=== PATIENT | female | born 1990 | race Caucasian/White ===

== ENCOUNTER 2022-03-06 18:33 | Emergency (ER) | payer BC, SELFPAY ==
[2022-03-06 18:50] VITALS: BP 129/77; PULSE 72; RESP 20; TEMP 36.7; O2SAT 100; BMI 27.6
--- NOTE | 2022-03-06 19:13 | EXP.UTC ---
Discharge Plan Disposition Patient Disposition: Home, Self-Care Condition: Good Prescriptions Prescriptions: New prednisone [prednisone] 20 mg tablet 20 mg PO BID 5 Days Qty: 10 0RF No Action escitalopram oxalate 10 mg tablet 10 mg PO DAILY Referrals Follow up/Referrals: Shama De La Vega [Primary Care Provider] - See instructions Activity Restrictions/Add. Instructions Additional Instructions/Restrictions: Look around and see what may have changed that you may be having a reaction too and change to something you have used before Over the counter Benadryl may help with itching Start oral steriods tomorrow Follow up with your Family Doctor if needed Rewash anything that may have been washed in the new detergent Straight to ER if any lfie threatening symptoms Clinical Impressions Clinical Impression: Urticaria Instructions Patient Instructions: ASHUTOSH Carrington for Hives Discharge ED Provider: Chaparrita Gomez [facility] General Stated complaint: rash Mode of Arrival: Ambulatory Source of Information: Patient Limitations: No Limitations Time Seen by Provider: 03/06/22 19:13 Description of Symptoms (Recalled from Triage Doc. by RN): PATIENT C/O RED, RAISED, ITCHY RASH ALL OVER SINCE YESTERDAY, UNKNOWN CAUSE HEENT Symptoms (Recalled from RN notes): No Resp Symptoms (Recalled from RN notes): No Skin Symptoms (Recalled from RN notes): Yes MS Symptoms (Recalled from RN notes): No Functional Status (Recalled from RN notes): WNL History of Present Illness Provider Complaint: Patient states that she broke out in rash all over her body yesterday and it has been itching and spreading State that they did recently get new laundry detergent not sure if it was a different scent or something but she has welps all over Related Data Home Medications Medication Instructions Recorded Confirmed escitalopram oxalate 10 mg tablet 10 mg PO DAILY Depression 03/06/22 03/06/22 Previous Rx's Medication Instructions Recorded prednisone 20 mg tablet 20 mg PO BID 5 days #10 tabs 03/06/22 Allergies Allergy/AdvReac Type Severity Reaction Status Date / Time No Known Allergies Allergy Verified 12/07/18 09:55 Worker's Comp Is this a Worker's Comp case?: No [facility] Disclaimer: The information contained in this section may have been updated after the patient was seen, as this information can be updated by other users. Medical History (Updated 03/06/22 @ 19:30 by Chaparrita Gomez APRN) Anxiety Asthma Depression Surgical History (Updated 03/06/22 @ 18:59 by Huong Martin, RN) History of tonsillectomy Social History (Updated 03/06/22 @ 18:59 by Huong Martin, RN) Smoking Status: Unknown if ever smoked alcohol intake: never current occupational status: other Travel in the last 8 weeks: None ROS Obtained: Yes All systems reviewed & no additional complaints except as documented and Yes Systems reviewed as appropriate & no additional complaints except as documented Constitutional Constitutional: Reports system reviewed and no additional complaints, except as documented and Reports as per HPI Eyes Eyes: Reports system reviewed and no additional complaints, except as documented and Reports as per HPI ENT Ears, Nose, Mouth, and Throat: Reports system reviewed and no additional complaints, except as documented and Reports as per HPI Respiratory Respiratory: Reports system reviewed and no additional complaints, except as documented, Reports as per HPI and Denies shortness of breath Gastrointestinal Gastrointestingal: Reports system reviewed and no additional complaints, except as documented and as per HPI Integumentary/Breasts Skin/Breast: Reports system reviewed and no additional complaints, except as documented, Reports as per HPI, Reports pruritus and Reports rash Physical Exam General General appearance: alert and in no apparent distress ENT ENT exam: Present mucous membranes moist Expanded E
[2022-03-06 19:24] LABS: UTC Pregnancy Test, Urine Negative (Negative)
[2022-03-06 19:32] VITALS: BP 129/77; PULSE 72; RESP 20; TEMP 36.7; O2SAT 100
== END 2022-03-06 19:55 | disposition home or self-care (01) ==
PROVIDERS: Emergency Provider Nurse Practitioner; PCP Nurse Practitioner Family
DX: L50.9 Urticaria, unspecified (principal)
CPT/HCPCS: 81025; 96372; 99212; G0463

== ENCOUNTER 2022-06-24 08:09 | Emergency (ER) | payer BC, SELFPAY ==
[2022-06-24 08:15] VITALS: BP 145/80; PULSE 80; RESP 20; TEMP 36.8; O2SAT 100; BMI 28.3
--- NOTE | 2022-06-24 08:29 | EXP.UTC ---
Discharge Plan Disposition Patient Disposition: Home, Self-Care Condition: Good Prescriptions Prescriptions: New ibuprofen [IBU] 800 mg tablet 800 mg PO Q8HP PRN (Reason: Moderate Pain) Qty: 30 0RF sulfamethoxazole-trimethoprim [Bactrim DS] 800-160 mg Tablet 1 tab PO BID Qty: 20 0RF No Action escitalopram oxalate 10 mg tablet 10 mg PO DAILY Referrals Follow up/Referrals: Shama De La Vega [Primary Care Provider] - See instructions Activity Restrictions/Add. Instructions Additional Instructions/Restrictions: Rest the extremity, Elevate the extremity as tolerated while you are resting. Take ibuprofen for pain. I sent in a prescription to your pharmacy. Take the antibiotics as directed. Follow up with your regular doctor in 48 hours for a recheck. GO TO THE ER FOR ANY WORSENING SYMPTOMS Clinical Impressions Clinical Impression: Cellulitis of leg, right Stand Alone Forms Stand Alone Forms: Work/School Release Instructions Patient Instructions: Cellulitis Discharge ED Provider: Manny Hauser [facility] General Stated complaint: knot on Rt leg, no accident Time Seen by Provider: 06/24/22 08:18 History of Present Illness Provider Complaint: She states that she has had right leg swelling and a warm knot on the side of her right lower leg for the past 4 hours. She denies any shortness of breath or chest pain. Related Data Home Medications Medication Instructions Recorded Confirmed escitalopram oxalate 10 mg tablet 10 mg PO DAILY Depression 06/24/22 06/24/22 Previous Rx's Medication Instructions Recorded ibuprofen 800 mg tablet (IBU) 800 mg PO Q8HP PRN Moderate Pain 06/24/22 #30 tabs sulfamethoxazole 800 1 tab PO BID #20 tabs 06/24/22 mg-trimethoprim 160 mg tablet (Bactrim DS) Allergies Allergy/AdvReac Type Severity Reaction Status Date / Time No Known Allergies Allergy Verified 06/24/22 08:31 [facility] Disclaimer: The information contained in this section may have been updated after the patient was seen, as this information can be updated by other users. Medical History Anxiety Asthma Depression Surgical History History of tonsillectomy Social History Smoking Status: Unknown if ever smoked alcohol intake: never current occupational status: other Travel in the last 8 weeks: None ROS Obtained: Yes All systems reviewed & no additional complaints except as documented Constitutional Constitutional: Denies chills and Denies fever(s) Eyes Eyes: Denies eye discharge ENT Ears, Nose, Mouth, and Throat: Denies dizziness, Denies otalgia and Denies sore throat Cardiovascular Cardiovascular: Denies chest pain Respiratory Respiratory: Denies shortness of breath, Denies chest congestion, Denies cough, Denies stridor and Denies wheezing Gastrointestinal Gastrointestingal: Denies nausea or vomiting Musculoskeletal Musculoskeletal: Reports system reviewed and no additional complaints, except as documented and Denies arthralgias Integumentary/Breasts Skin/Breast: Reports as per HPI Neurologic Neurologic: Denies dizziness and Denies paresthesias Allergic/Immunologic Allergic/Immunologic: Denies wheezing Physical Exam General General appearance: alert and in no apparent distress Head Head exam: atraumatic, normocephalic and normal inspection Eye Eye exam: Present normal appearance, PERRL and EOMI ENT ENT exam: Present normal exam, normal oropharynx, mucous membranes moist, TM's normal bilaterally and normal external ear exam Neck Neck exam: Present normal inspection, full ROM and trachea midline; Absent meningismus or lymphadenopathy Chest Chest inspection: Present normal inspection and symmetric chest wall rise; Absent tenderness Respiratory Respiratory exam: Present normal lung sounds bilater
--- NOTE | 2022-06-24 09:30 | PC.NURSE ---
Checked on pt no needs at this time
--- NOTE | 2022-06-24 09:33 | PC.NURSE ---
Pt went down for doppler
[2022-06-24 10:44] VITALS: BP 145/80; PULSE 80; RESP 20; TEMP 36.8; O2SAT 100
== END 2022-06-24 10:44 | disposition home or self-care (01) ==
PROVIDERS: Emergency Provider Nurse Practitioner Family; PCP Nurse Practitioner Family
DX: L03.115 Cellulitis of right lower limb (principal)
CPT/HCPCS: 93971; 99212; 99214; G0463

== ENCOUNTER 2024-08-22 02:34 | Emergency (ER) | payer BC, SELFPAY ==
[2024-08-22] VITALS (14 sets, daily range): BP systolic 126–147; BP diastolic 76–99; PULSE 122–143; RESP 16–26; TEMP 36.6–36.9; O2SAT 97–100; BMI 33.0
--- NOTE | 2024-08-22 02:30 | ECG_ITS ---
APPROVED REPORT Exam: Resting ECG HR:151 bpm ECG Measurements Heart Rate 151 AXES WY 112 P 29 QRSd 86 QRS 75 QT 324 T 49 QTc 410 Conclusion SINUS TACHYCARDIA WITH SHORT WY INTERVAL, POSSIBLE ATRIAL FLUTTER NONSPECIFIC ST & T-WAVE ABNORMALITY No STEMI Electronically signed by : TAB HOLMAN, 08/22/2024 03:51:09
[2024-08-22] MEDS: LACTATED RINGERS 1000ML 1,000 ML 999 ML IV ×2 (02:43→03:54)
[2024-08-22] MEDS: ONDANSETRON 4MG/2ML VIAL 4 MG IV (02:43)
--- NOTE | 2024-08-22 02:43 | XR_ITS ---
PROCEDURE INFORMATION: Exam: XR Chest Exam date and time: 08/22/2024 3:01 AM Age: 34 years old Clinical indication: Tachypnea; Additional info: Tachy, took delta 9 gummies TECHNIQUE: Imaging protocol: Radiologic exam of the chest. Views: 1 view. COMPARISON: No relevant prior studies available. FINDINGS: Lungs: Unremarkable. No consolidation. Pleural spaces: Unremarkable. No pleural effusion. No pneumothorax. Heart/Mediastinum: Unremarkable. No cardiomegaly. Bones/joints: Unremarkable. IMPRESSION: No acute findings.
--- OUTSIDE RECORDS SUMMARY | 2024-08-22 03:03 | XMS_ITS | Patient Health Record ---
Author Organization [facility] Address [address] [place] [address] Care Team Providers Care Business Management Associate Name Role Phone Vanna Dickinson Unavailable [phone] Estefani Pollock Unavailable [phone] Allergies No Known Allergies Results Component Value Reference Range Notes Pap w/HPV Reviewed date:11/15/2023 03:26:53 PM Interpretation:Pap normal, HPV negative Performing Lab:[facility], [facility] - [place] CLIA ID [id number], [address], [address], [place] [address], Director - Lacie Pandey MD Notes/Report: Any Nucleic Acid Amplification testing is performed on the [facility] [place]. Diagnosis: Negative for intraepithelial lesion or malignancy. AP results FINAL FIRMWARE MANAGER CYTOLOGY REPORT DIAGNOSIS: Negative for intraepithelial lesion or malignancy. Specimen Adequacy: Satisfactory for interpretation with endocervical/transformat ion zone component present. Pertinent Clinical History/History of Surgery: Not provided Collection Technique: Not provided Results of Last Pap: Not provided LMP: IUD Date of Last Pap: Not provided Specimen Source: Cervical/Endocervical Specimen Type: ThinPrep Other Gynecological Patient Information: Not provided Recommendation: Follow-up based on current clinical guidelines and/or clinical consideration. Screening note: This specimen has been analyzed by the ThinPrep Imaging System, an interactive computer system which assists the lab in screening of ThinPrep Pap Test slides. Following imaging, the slide was reviewed by a Residential Electrician and/or Pathologist. Negative Educational Note: The pap screening test aids in the detection of premalignant and malignant states of the cervix. False positive and negative results may occur. It is not a diagnostic test. If abnormal cells are reported, follow-up based on current clinical guidelines and/or clinical consideration is recommended. Mandy Cedeno Residential Electrician CPT Codes: 35465 ICD Codes: Z01.419 HPV High-Risk Negative Negative Reason For Referral No Information Medications Medication SIG (Take, Route, Frequency, Duration) Notes Start Date End Date Status Escitalopram Oxalate 10 MG Oral; Duration: 30 Days Active Mirena (52 MG) 20 MCG/DAY as directed Intrauterine Active Social History Sex Assigned At : Social History Observation Description Sex Assigned At Female Problems Problem Type SNOMED Code ICD Code Onset Dates Problem Status W/U Status Risk Notes Problem Cervical smear, as part of routine gynecological examination (Z01.419) 0 Active confirmed Annual without abnormal findings Vital Signs Blood pressure diastolic 80 mm Hg 11/08/2023 Height 70 in 11/08/2023 Blood pressure systolic 118 mm Hg 11/08/2023 Weight 223.4 lbs 11/08/2023 BMI 32.05 kg/m2 11/08/2023 Encounters Encounter Location Date Provider Diagnosis [facility] [address] [facility] [address] [place] [address] 11/06/2023 Estefani Pollock [facility] [address] [place] [address] 11/08/2023 Estefani Pollock [employer] exam without abnormal findings Z01.419 Assessments Encounter Date Diagnosis (ICD Code) Assessment Notes Treatment Notes Treatment Clinical Notes Section Notes 11/08/2023 [employer] exam without abnormal findings (ICD-10 - Z01.419) Normal annual exam Pap obtained BSE encouraged Follow up annual exam or PRN Plan Of Treatment No Information Insurance Providers Payer Name Payer Address Payer Phone Subscriber Number Group Number Insured Name Patient Relationship to Insured Coverage Start Date Coverage End Date Araseli HUBBARD [address] [place] [address] [id number] Rupinder Naqvi Self - patient is the insured Medical (General) History Medical History History ICD Code Asthma Anxiety Depression Obesity Surgical History Surgery Date(Month/Year) Tonsillectomy
--- OUTSIDE RECORDS SUMMARY | 2024-08-22 03:03 | XMS_ITS | Encounter Summary ---
Author Organization Healthcare Address [address] [place] [address] Care Team Providers Care Primer Waterproofing Machine Adjuster Name Role Phone Shama De La Vega HUMAN RESOURCES CLERK Primary Care Provider [phone] Reason for Visit * Reason Comments Med Refill Encounter Details Date Type Department Care Team (Late st Contact Info) Description 06/17/2023 Refill [facility] [address] [place] [address] Shama De La Vega APRN [address] [place] [address] Generalized anxiety disorder; Major depressive disorder, recurrent, moderate (CMS/HCC) Social History Tobacco Use Types Packs/Day Years Used Date Smoking Tobacco: Never Smokeless Tobacco: Never PHQ-2 Answer Date Recorded PHQ-2 Score 0 05/01/2022 PHQ-2A Answer Date Recorded PHQ-2 Score 0 05/01/2022 Comments Unknown Sex and Gender Information Value Date Recorded Sex Assigned at Female 02/14/2021 2:40 PM EST Legal Sex Female 9:03 AM EST Gender Identity Female 02/14/2021 2:40 PM EST Sexual Orientation Straight 02/14/2021 2: 40 PM EST documented as of this encounter Plan of Treatment Not on file documented as of this encounter Visit Diagnoses Diagnosis Generalized anxiety disorder Major depressive disorder, recurrent, moderate (CMS/HCC) Major depressive disorder, recurrent episode, moderate documented in this encounter Additional Health Concerns Assessment Noted Time PHQ-9 Depression Total Score: 12 021 10:51 AM EST A Body Mass Index follow-up plan has been documented for the patient 04/03/2022 3:24 PM EST documented as of this encounter Care Teams Primer Waterproofing Machine Adjuster Relationship Specialty Start Date End Date Shama De La Vega, HUMAN RESOURCES [place] [address] PCP - General Family Medicine 02/15/21 documented as of this encounter
--- OUTSIDE RECORDS SUMMARY | 2024-08-22 03:03 | XMS_ITS | Clinical Summary ---
Author Organization Healthcare Address [address] [place] [address] Care Team Providers Care Food Editor Name Role Phone Shama De La Vega MEIR Primary Care Provider [phone] Allergies No known active allergies Medications escitalopram (Lexapro) 10 MG tabletIndication s:Generalized anxiety disorder,Major depressive disorder, recurrent, moderate (CMS/HCC) Take 1 tablet (10 mg) by mouth 1 (one) time each day. 90 tablet 3 4 Active levonorgestrel (Kyleena) 19.5 MG intrauterine device IUD 1 each by Intrauterine route 1 (one) time. Active Active Problems Problem Noted Date Diagnosed Date Generalized anxiety disorder 04/03/2022 Major depressive disorder, recurrent, moderate 0 04/03/2022 Family History Medical History Relation Name Comments No Known Problems Brother Hypertension Father No Known Problems Maternal Grandfather Brain cancer Maternal Grandmother No Known Problems Mother Diabetes type II Paternal Grandmother Stroke Paternal Grandmother Relation Name Status Comments Brother Father Maternal Grandfather Maternal Grandmother Mother Paternal Grandmother Social History Tobacco Use Types Packs/Day Years Used Date Smoking Tobacco: Never Smokeless Tobacco: Never Tobacco Cessation:Counseling Given: Not Answered Humiliation, Afraid, Rape, and Kick questionnair e Answer Date Recorded Within the last year, have y ou been afraid of your partner or ex-partner? No 09/20/2023 Within the last year, have y ou been humiliated or emotionally abused in other ways by your partner or ex-partner? No Within the last year, have y ou been kicked, hit, slapped, or otherwise physically hurt by your partner or ex-partner? No 09/20/2023 Within the last year, have y ou been raped or forced to have any kind of sexual activity by your partner or ex-partner? No 09/20/2023 PHQ-2 Answer Date Recorded Patient Health Questionnaire-2 Score 0 09/25/2023 Hunger Vital Sign Answer Date Recorded Within the past 12 months, y ou worried that your food would run out before you got the money to buy more. Never true 09/20/19 24 Within the past 12 months, t he food you bought just didn't last and you didn't have money to get more. Never true 09/20/2023 PRAPARE - Transportation Answer Date Re corded In the past 12 months, has l ack of transportation kept you from medical appointments or from getting medications? No 07/2023 In the past 12 months, has l ack of transportation kept you from meetings, work, or from getting things needed for daily living? No 09/20/2023 Housing Stability Vital Sign Answer Valdez e Recorded In the last 12 months, was t here a time when you were not able to pay the mortgage or rent on time? No 09/20/2023 In the last 12 months, how many places have you lived? 1 09/20/2023 In the last 12 months, was t here a time when you did not have a steady place to sleep or slept in a jail (including now)? No 09/20/2023 Utilities Answer Date Recorded In the past 12 months has th e electric, gas, oil, or water company threatened to shut off services in your home? No 09/20/2023 PHQ-2A Answer Date Recorded PHQ-2 Score 0 05/01/2022 Comments Unknown Sex and Gender Information Value Date Recorded Sex Assigned at Female 02/14/2021 2:40 PM EST Legal Sex Female 9:03 AM EST Gender Identity Female 02/14/2021 2:40 PM EST Sexual Orientation Straight 02/14/2021 2: 40 PM EST Last Filed Vital Signs Vital Sign Reading Time Taken Comments Blood Pressure 112/72 09/25/2023 8:34 AM EDT Pulse 84 09/25/2023 8:34 AM EDT Temperature 36.4 C (97.6 F) 03/20/2021 3:18 PM EST Respiratory Rate 16 03/20/2021 3:18 PM EST Oxygen Saturation 99% 09/25/2023 8:34 AM EDT Inhaled Oxygen Concentration - - Weight 102 kg (224 lb) 09/25/2023 8:34 AM EDT Height 177.8 cm (5' 10 ) 09/25/2023 8:34 AM EDT Body Mass Index 32.14 09/25/2023 8:34 AM EDT Plan of Treatment Health Maintenance Due Date Last Done Comments [facility]-HIV Screening 1991 [facility]-Hepatitis C Screening 1991 [facility]-/Child/Adol SDOH Screenings 1991 [facility]-Varicella Vaccines (1 of 2 - 13+ 2-dose series) 08/17/2004 HPV Vaccines (1 - 3-dose series) 08/17/2006 [facility]-DTaP,Tdap,and Td Vaccines (1 - Tdap) 08/17/2010 [facility]-Hepatitis B Vaccines (1 of 3 - 19+ 3-dose series) 08/17/2010 [facility]-Pap Smear 08/17/2012 [facility]-Cervical Cancer Screening 08/17/2021 [facility]-HPV/Cotest 08/17/2021 [id number] Vaccine ( - season) 2023 [facility]- SDOH Screenings 03/22/2024 [facility]-Adult SDOH Screenings 03/22/2024 09/20/2023 [facility]-Depression Screening 09/24/2024 09/25/2023, 12/0 03/2020 [facility]-Influenza Vaccine (Season Ended) 2024 [facility]-Zoster Vaccines (1 of 2) 08/17/2041 [facility]-Obesity Intervention Completed 024, 09/25/2023, 09/25/2023, Additional history exists [facility]-HIB Vaccines Aged Out No longer e ligible based on patient's age to complete this topic [facility]-Hepatitis A Vaccines Aged Out No longer eligible based on patient's age to complete this topic [facility]-IPV Vaccines Aged Out No longer e ligible based on patient's age to complete this topic [facility]-Pneumococcal Vaccine: Pediatrics (0 to 5 Years) and At-Risk Patients (6 to 49 Years) Aged Out No longer eligible based on patient's age to complete this topic [facility]-Rotavirus Vaccines Aged Out No lo nger eligible based on patient's age to complete this topic Insurance [facility] [place] [address] ANTHEM Care Teams Food Editor Relationship Specialty Start Date End Date Shama De La Vega APRN [address] [place] [address] PCP - General Family Medicine 02/15/21
[2024-08-22 03:05] LABS: HCG Qualitative, Serum Negative (Negative)
[2024-08-22 03:08] LABS: Alanine Aminotransferase 19 U/L (12-78); Albumin Level 4.4 g/dl (3.5-5.0); Albumin/Globulin Ratio 1.5 (1.1-1.8); Alkaline Phosphatase 66 U/L (38-126); Anion Gap 9.4 mEq/L (5-15); Aspartate Amino Transferase 28 U/L (14-36); Bilirubin,Total 0.8 mg/dl (0.2-1.3); Blood Urea Nitrogen 21 mg/dl (7-17); Calcium 8.9 mg/dl (8.4-10.2); Carbon Dioxide 23 mmol/L (22.0-30.0); Chloride 106 mmol/L (98-107); Creatinine Clearance Estimated 146 mL/min (50-200); Estimated Glomerular Filt Rate 72 ml/min (>60); GFR (African American) 87 ML/MIN (>60); Globulin 2.9 g/dL (1.3-3.2); Glucose 139 mg/dl (74-100); Potassium 3.4 mmoL/L (3.5-5.1); Sodium 135 mmol/L (136-145); Total Protein,Serum 7.3 g/dl (6.3-8.2)
[2024-08-22 03:12] LABS: D-Dimer 0.38 ug/mL (0.0-0.5)
[2024-08-22 03:14] LABS: Basophils # 0.1 K/mm3 (0-0.2); Basophils % 0.8 % (0.1-2.0); Eosinophils # 0.5 Kmm3 (0.0-0.4); Eosinophils % 7.7 % (0.1-12.0); Hematocrit 43.7 % (37.0-47.0); Hemoglobin 14.3 g/dL (12.2-16.2); Immature Granulocytes # 0.01 10^3uL; Immature Granulocytes % 0.2 %; Lymphocytes # 3.4 K/mm3 (0.7-4.5); Lymphocytes % 51.2 % (10-50); Mean Corpuscular HGB Conc 32.7 g/dL (31.8-35.4); Mean Corpuscular Hemoglobin 29.9 pg (27.0-31.2); Mean Corpuscular Volume 91.2 fl (81-99); Monocytes # 0.5 K/mm3 (0.1-1.0); Monocytes % 7.7 % (1.7-9.3); Neutrophils # 2.1 K/mm3 (1.8-7.8); Neutrophils % 32.4 % (37.0-80.0); Nucleated Red Blood Cells # 0 10^3/uL; Nucleated Red Blood Cells % 0 %; Platelet Count 258 K/mm3 (142-424); Red Blood Count 4.79 M/mm3 (4.20-5.40); Red Cell Distribution Width 11.8 % (11.5-17.5); Red Cell Distribution Width-SD 39.6 fL; White Blood Count 6.6 K/mm3 (4.8-10.8)
--- NOTE | 2024-08-22 03:30 | HMH.EDGENADL ---
Discharge Plan Disposition Patient Disposition: Home, Self-Care Condition: Good Prescriptions Prescriptions: No Action escitalopram oxalate 10 mg tablet 10 mg PO DAILY ibuprofen [IBU] 800 mg tablet 800 mg PO Q8HP PRN (Reason: Moderate Pain) Qty: 30 0RF sulfamethoxazole-trimethoprim [Bactrim DS] 800-160 mg Tablet 1 tab PO BID Qty: 20 0RF Referrals Follow up/Referrals: Provider,Referral, MD [Primary Care Provider, Medical] - See instructions Activity Restrictions/Add. Instructions Additional Instructions/Restrictions: You were evaluated in the ER and are believed to be appropriate for discharge at this time. Drink plenty of water and get lots of rest when you get home. Avoid all illicit substances in the future to avoid circumstances like these. Make an appointment with your primary care doctor for reevaluation. Return to the ER with any new, worsening, or otherwise concerning symptoms as discussed including but not limited to chest pain, difficulty breathing, dizziness, or anything else worrying. Clinical Impressions Clinical Impression: Other psychoactive substance use, unspecified with intoxication, unspecified, Sinus tachycardia, Anxiety Print Language Print Language: Slovak Discharge ED Provider: Joceline Bentley General Adult HPI General Chief complaint: Overdose Stated complaint: Overdose Time Seen by Provider: 08/22/24 02:35 Mode of Arrival: EMS Source of Information: Patient and EMS Description of Symptoms (Recalled from ER Triage Doc. by RN): Pt presents to ED via EMS after taking Delta 9 gummies. Pt states she has no pain but feels weird and has cotton mouth. Pt is A&O*4 at this time. History of Present Illness HPI narrative: 34 year old female who reports no current medical conditions, no daily medications, no known drug allergies presents to the ER for complaints of cottonmouth after taking delta 9 Gummies purchased from a gas station. Patient ingested 1000 mg of delta 9 gummy which includes delta 9, THCA, THCB, and THCP. Patient denies any history of recreational drug use, occasional alcohol use is reported but none tonight. Patient denies taking any other medications or drugs tonight. Denies suicidal or homicidal ideation. Patient complains of extremely dry mouth and states her chest feels funny but otherwise does not have other complaints or concerns. She reports mild nausea, she is fully oriented. LMP a few years ago, patient reports the presence of IUD EMS reports no medications administered during transportation. Related Data Home Medications ?Medication ?Instructions ?Recorded ?Confirmed escitalopram oxalate 10 mg tablet 10 mg PO DAILY Depression 06/24/22 06/24/22 Previous Rx's ?Medication ?Instructions ?Recorded ibuprofen 800 mg tablet (IBU) 800 mg PO Q8HP PRN Moderate Pain 06/24/22 #30 tabs sulfamethoxazole 800 1 tab PO BID #20 tabs 06/24/22 mg-trimethoprim 160 mg tablet (Bactrim DS) Allergies Allergy/AdvReac Type Severity Reaction Status Date / Time No Known Allergies Allergy Verified 06/24/22 08:31 [facility] Disclaimer: The information contained in this section may have been updated after the patient was seen, as this information can be updated by other users. Medical History Anxiety Asthma Depression Surgical History History of tonsillectomy Social History Smoking Status: Unknown if ever smoked alcohol intake: never current occupational status: other Travel in the last 8 weeks?: None ROS Obtained: Yes Systems reviewed as appropriate & no additional complaints except as documented Per HPI Physical Exam General General appearance: alert, in no apparent distress and appears intoxicated Head Head exam: atraumatic and normocephalic Eye Eye exam: Present PERRL and EOMI ENT ENT exam: Present mucous membranes moist Neck Neck exam: Present normal inspection and full ROM Chest Chest inspection: Present symmetric chest wall rise Respiratory Respiratory exam: Present normal lung sounds bilaterally; Absent respiratory distress, wheezes or stridor Cardiovascular Cardiovascular exam: Present normal rhythm and tachycardia (Heart rate in the 140s on arrival) Abdominal Exam Abdominal exam: Present soft; Absent distention, tenderness, guarding or rebound Extremities Exam Extremities exam: Present full ROM; Absent tenderness, edema or joint swelling Neurological Exam Neurological exam: Present alert, oriented X3 and CN II-XII intact; Absent motor sensory deficit Psychiatric Psychiatric exam: Present normal affect and normal mood Skin Skin exam: Present warm and dry Medical Decision Making Medical Records Medical records reviewed: Yes I reviewed the patient's medical records. Screening: Per USPSTF and CDC recommendations, given the prevalence of disease in our region, it is our hospital?s policy to screen for HIV and viral Hepatitis for all patients aged 18 and over and those with ongoing risk factors. Chris Inquiry Pt receiving controlled substance: No Vital Signs: 08/22/24 02:29 08/22/24 02:36 08/22/24 02:45 Temperature 98.5 F Temperature Source Oral Pulse Rate 143 H 124 H Pulse Rate [Left] 136 H Respiratory Rate 19 26 H 16 Blood Pressure Blood Pressure [Right Arm] 147/93 H Blood Pressure Mean Blood Pressure Mean [Right Arm] 111 02 Sat by Pulse Oximetry 99 99 100 Oxygen Delivery Method Room Air 08/22/24 03:00 08/22/24 03:15 08/22/24 03:30 Temperature Temperature Source Pulse Rate 123 H 128 H Pulse Rate [Left] Respiratory Rate 18 22 Blood Pressure 147/99 H 142/81 H Blood Pressure [Right Arm] Blood Pressure Mean 107 100 Blood Pressure Mean [Right Arm] 02 Sat by Pulse Oximetry 100 99 Oxygen Delivery Method 08/22/24 04:00 08/22/24 04:30 08/22/24 05:00 Temperature Temperature Source Pulse Rate 122 H 125 H 134 H Pulse Rate [Left] Respiratory Rate 20 17 18 Blood Pressure 139/83 137/78 147/85 H Blood Pressure [Right Arm] Blood Pressure Mean 98 97 103 Blood Pressure Mean [Right Arm] 02 Sat by Pulse Oximetry 100 100 99 Oxygen Delivery Method 08/22/24 06:00 08/22/24 06:15 08/22/24 06:31 Temperature Temperature Source Pulse Rate 128 H 135 H 135 H Pulse Rate [Left] Respiratory Rate 17 20 19 Blood Pressure 128/76 146/83 H Blood Pressure [Right Arm] Blood Pressure Mean 91 93 Blood Pressure Mean [Right Arm] 02 Sat by Pulse Oximetry 97 98 99 Oxygen Delivery Method Lab Data Lab Results 08/22/24 02:40: WBC 6.6, RBC 4.79, Hgb 14.3, Hct 43.7, MCV 91.2, MCH 29.9, MCHC 32.7, RDW 11.8, Plt Count 258, MPV 10.0, Neut % (Auto) 32.4 L, Lymph % (Auto) 51.2 H, [place] % (Auto) 7.7, Eos % (Auto) 7.7, Baso % (Auto) 0.8, Neut # (Auto) 2.1, Lymph # (Auto) 3.4, [place] # (Auto) 0.5, Eos # (Auto) 0.5 H, Baso # (Auto) 0.1, D-Dimer 0.38, Sodium 135 L, Potassium 3.4 L, Chloride 106, Carbon Dioxide 23, Anion Gap 9.4, BUN 21 H, Creatinine 0.90, Estimated Creat Clear 146, Estimated GFR 72, Est GFR ( Amer) 87, Glucose 139 H, Calcium 8.9, Total Bilirubin 0.8, AST 28, ALT 19, Alkaline Phosphatase 66, Troponin I < 0.01, Total Protein 7.3, Albumin 4.4, Globulin 2.9, Albumin/Globulin Ratio 1.5, Serum HCG, Qual Negative, HCV Ab STEFANIA w/Rflx PCR Qn Negative, HIV Ag/Ab Combo Qual Negative 08/22/24 02:40 08/22/24 02:40 Orders (Tests/Meds): ED MEDICATIONS Discontinued Medications Generic Name Dose Route Start Last Admin Trade Name Freq PRN Reason Stop Dose Admin Hydroxyzine Pamoate 50 mg 08/22/24 04:59 08/22/24 05:03 Hydroxyzine Pamoate 25mg Capsule PO 08/22/24 05:00 50 mg ONCE ONE Administration Lactated Ringer's 1,000 mls @ 999 mls/hr 08/22/24 02:35 08/22/24 02:43 Lactated Ringer's 1000 Ml Bag IV 08/22/24 03:35 999 mls/hr .Q1H1M ONE Administration Lactated Ringer's 1,000 mls @ 999 mls/hr 08/22/24 03:41 08/22/24 03:54 Lactated Ringer's 1000 Ml Bag IV 08/22/24 04:41 999 mls/hr .Q1H1M ONE Administration Ondansetron HCl 4 mg 08/22/24 02:35 08/22/24 02:43 Ondansetron 4mg/2ml Vial IV 08/22/24 02:36 4 mg ONCE ONE Administration ORDERS Category Date Time Status CXR --portable [XR chest portable] Stat Exams 08/22/24 02:43 Completed CBC w/Auto Diff [Complete Blood Count Auto Diff] Stat Lab 08/22/24 02:40 Completed CMP [Comprehensive Metabolic Panel] Stat Lab 08/22/24 02:40 Completed D-Dimer Stat Lab 08/22/24 02:40 Completed HCG Qualitative, Serum Stat Lab 08/22/24 02:40 Completed HIV Combo Stat Lab 08/22/24 02:40 Completed Hepatitis C Ab Qual. W/ RFX Stat Lab 08/22/24 02:40 Completed Trop I [Troponin I] Stat Lab 08/22/24 02:40 Completed Troponin I Q3H Lab 08/22/24 06:02 Received ECG Request Stat Y 08/22/24 04:59 Ordered Medical Decision Narrative: In summary, this 34-year-old female presents to the emergency department today with dry mouth and funny feeling in the chest after delta 9 ingestion. On initial evaluation patient is tachycardic but otherwise hemodynamically stable, afebrile, GCS 15 though patient appears intoxicated, no neurologic deficits, patient denies chest pain and cardiopulmonary exam is benign aside from tachycardia, no peripheral edema, no evidence of traumatic injury, abdominal exam benign. Differential diagnosis includes but is not limited to delta 9 ingestion and side effects, I considered the possibility of coingestion however patient adamantly denies taking anything else and they provide the package for the Gummies upon arrival. With patient's tachycardia I considered the possibility of cardiac abnormality such as ACS or PE though I have very low suspicions for these and suspect tachycardia is related to intoxication. Based on these concerns, I ordered basic serum labs, cardiac workup, D-dimer, test. ECG personally interpreted demonstrates sinus tachycardia, rate 151, normal axis, normal OK and QTc, no STEMI. Patient received IV fluids and Zofran for treatment. Labs personally reviewed demonstrate trace hyponatremia and hypokalemia, nonactionable at this time, mild prerenal azotemia, patient is already receiving IV fluids. D-dimer normal at 0.38, PE excluded and CTA PE not indicated. No leukocytosis or anemia, normal platelets, initial troponin undetectably low less than 0.01 significantly reassuring since the patient has no chest pain and a nonischemic ECG. XR personally interpreted demonstrates no lobar infiltrate or other acute intrathoracic abnormality, see radiology read for final interpretation. Patient was placed in the ED observation at 0335 for continued cardiac monitoring and metabolization of intoxication. Goal is to preclude unnecessary admission and ensure patient returns to baseline. Patient remains on the ritual circumciser and has been frequently assessed while in ED observation. On reassessment patient has had improvement of her heart rate, now in the 120s, however she has already received 2 L of IV fluids and she is not yet down to a normal rate. Review of previous records demonstrates she has not had significant tachycardia before. She states she can feel her heart beating out of her chest but also states she feels extremely anxious. Repeat ECG was performed and personally interpreted demonstrating sinus tachycardia, rate 126, normal axis, normal OK and QTc, no STEMI. Due to significant anxiety patient received oral hydroxyzine. Hydroxyzine offer the patient a slight amount of relief, however her heart rate still remains elevated. Every time she thinks about having to call her mom to pick her up, her heart rate jumps at least 10-15 points. She expresses to me that she is still having anxiety but wants to go home. She is adamant that she is not having chest pain or difficulty breathing and thinks her heart rate is just high because she is anxious. There are also psychoactive components to the delta 9 which are likely contributing. I believe patient is likely appropriate for discharge. Repeat troponin is also undetectably low which offers further reassurance since patient has nonischemic ECG and no chest pain, shortness of breath, dizziness, or nausea. At this time I believe patient is appropriate for discharge. She is tolerating oral intake and has ambulated independently. She is a GCS 15 and clinically sober. She is appropriate for discharge at this time. Because she wanted to leave with elevated heart rate which I do believe is reasonable since I have excluded serious underlying cause and have correlated her elevated heart rate with increased stress such as having to call her mom, I gave her explicit instructions on continued symptomatic monitoring and management at home and extremely strict return precautions for the ER. I reiterated all instructions on symptomatic monitoring and management, follow-up, and return precautions. I advised the patient to avoid all illicit substances in the future. She indicated understanding. She is very reliable and reports she will absolutely come back to the ER if she has persistence of high heart rate or any new or worsening symptoms. She indicated understanding to all instructions and was discharged in stable condition. Total time in ED observation: 3 hours 40 minutes Critical Care Critical Care Time Critical Care Time: No
[2024-08-22 03:37] LABS: Troponin I < 0.01 ng/ml (0.00-0.034)
[2024-08-22 03:51] LABS: HIV Combo NEGATIVE (Negative)
[2024-08-22 03:59] LABS: Hepatitis C Ab Qual. W/ RFX NEGATIVE (Negative)
[2024-08-22] MEDS: hydrOXYzine pamoate 25MG CAPSULE 50 MG PO (05:03)
--- NOTE | 2024-08-22 05:20 | ECG_ITS ---
APPROVED REPORT Exam: Resting ECG HR:126 bpm ECG Measurements Heart Rate 126 AXES NJ 168 P 61 QRSd 85 QRS 64 QT 286 T 16 QTc 361 Conclusion SINUS TACHYCARDIA NONSPECIFIC T-WAVE ABNORMALITY ABNORMAL RHYTHM ECG UNCONFIRMED REPORT Electronically signed by : PRESTON DAMON, 08/27/2024 01:22:51
--- NOTE | 2024-08-22 06:08 | PC.NURSE ---
2nd trop drawn and sent to the lab, pt requesting to ambulate to restroom.
[2024-08-22 07:13] LABS: Troponin I < 0.01 ng/ml (0.00-0.034)
== END 2024-08-22 07:20 | disposition home or self-care (01) ==
PROVIDERS: Emergency Provider Emergency Medicine
DX: F19.929 Other psychoactive substance use, unspecified with intoxication, unspecified (principal); R00.0 Tachycardia, unspecified; F41.9 Anxiety disorder, unspecified; Z11.59 Encounter for screening for other viral diseases; Z11.4 Encounter for screening for human immunodeficiency virus [HIV]
CPT/HCPCS: 71045; 80053; 80074; 84484; 84703; 85025; 85378; 87389; 93005; 96361; 96374; 99285; J2405; J7120